=== PATIENT | male | born 1985 | race Caucasian/White ===

== ENCOUNTER 2025-08-13 09:35 | Outpatient (OUT) | payer OTHER, SELFPAY ==
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
--- OUTSIDE RECORDS SUMMARY | 2025-08-07 08:00 | XMS_ITS ---
Author Organization The [facility] [place] in [place] Address [address] [place] [address] Care Team Providers Care Oil Field Rig Builder Name Role Phone None, Unknown or Primary Care Provider Unavailab giovana Espinoza Erika Unavailable [phone] Allergies No Known Allergies REASON FOR VISIT Annual wellness- has not been seen for a while Medications Medication SIG (Take, Route, Frequency, Duration) Notes Start Date End Date Status Progesterone 100 MG 1 capsule Orally bedtime 5ActiveSpironolactone 50 MG1 tablet Orally twice a day5Active Estradiol 2 MG2 tablets Orally in AM and 1 at HS5Active Social History Tobacco Use: Social History Observation Description Date Details (start date - stop date) Never Smoker NA - NA Tobacco Control (Standard) Question Answer Notes Tobacco use: Nonsmoker AUDIT-C (Standard) Question Answer Notes Did you have a drink containing alcohol in the p ast year? Yes How often did you have a drink containing alcohol in the past year?Monthly or less (1 point)How many drinks did you have on a typical day when you were drinking in the past year?1 or 2 drinks (0 point)How often did you have six or more drinks on one occasion in the past year?Less than monthly (1 point)Points2 InterpretationNegative Problems Problem Type SNOMED Code ICD Code Onset Dates Problem Status W/U Status Risk Notes Problem Gender dysphoria (06250888) Gender dyspho francy (F64.9) ActiveconfirmedProblemGastroesophageal reflux disease (929720540)GERD (gastroesophageal reflux disease) (K21.9)Activeconfirmed Vital Signs Blood pressure systolic 126 mm Hg 08/07/20 25 Blood pressure diastolic 98 mm Hg 025 Height 72 in 08/07/2025 Weight 202.0 lbs 08/07/2025 BMI 27.39 kg/m2 08/07/2025 Encounters Encounter Location Date Provider Diagnosis [facility] [address] [place] [place] [address] 08/07/2025 Erika Espinoza Gender dysphoria F64.9 Assessments Encounter Date Diagnosis (ICD Code) Assessment Notes Treatment Notes Treatment Clinical Notes Section Notes 08/07/2025 Gender dysphoria (ICD-10 - F64.9 ) follows with specialist [facility] clinic scheduled for orchiectomy vaginoplasty? Plan Of Treatment Treatment Notes Assessment Notes Gender dysphoria follows with specialist [facility] clinic scheduled for orchiectomy vaginoplasty? Next Appt Details Follow Up: prn,1 Year, Reaso n: Progress Notes * Bia VASQUEZ LDOB:[birth year] (40 yo M)Acc No.[id number]:08/07/2025 Progress Note Patient: Bia RICHARDSON :?Erika Espinoza ([facility]), CNPDOB:1985 ???Age:40 Y???Sex:Male(T)Date:08/07/2025Phone:[phone]:[address] [facility] [id number]:Unknown or NoneCheck In:01:00 PM ESTCheck Out: 01:36 PM EST Subjective: * Chief Complaints: * 1 . Annual wellness- has not been seen for a while. * HPI: ???Depression Screening:?PHQ-2 (2015 Edition)?Total Score?2 ?Little interest or pleasure in doing things? Several days ?Feeling down, depressed, or hopeless??Several days ???Depression Screening:?PHQ-9?Little interest or pleasure in doing things Several days ?Feeling down, depressed, or hopeless?Several days ?Trouble falling or staying asleep, or sleeping too much?Several days ?Feeling tired or having little energy?Not at all ?Poor appetite or overeating?Not at all ?Feeling bad about yourself or that you are a failure, or have let yourself or your family down?Several days ?Trouble concentrating on things, such as reading the newspaper or watching television?Not at all ?Moving or speaking so slowly that other people could have noticed; or the opposite, being so fidgety or restless that you have been moving arounda lot more than usual?Not at all ?Thoughts that you would be better off orof hurting yourself in some way?Not at all ?Total Score?4 ?Interpretation?Minimal Depression ???General:?[facility], [facility] for specialist sx scheduled gender dysphoria psych and therapy all through [facility] not working right now [employer] sometimes GERD at night walking with Dog, some at home work outs have changed diet some has cut out soda contact [facility] for labs little over year been on estrogen , mammogram checks? no acute concerns. * ROS: ???General/Constitutional:?Anxiety?some.?Depression?some.?Fever?denies.?Headache?denies.?Weight loss?denies.?Ophthalmologic:?Discharge?denies.?Eye Pain?denies.?Itching and redness?denies.?ENT:?Nasal discharge?denies.?Nasal congestion?denies. Sore throat?denies.?Cardiovascular:?Chest tightness/ heavy pressure?denies.?Rapid heart rate?denies.?Swelling of extremities?denies.?Chest pain?denies.?Respiratory:?Productive cough?denies.?Chest pain?denies.?Cough?denies.?Shortness of breath?denies.?Wheezing?denies.?Gastrointestinal:?Abdominal pain?denies.?Constipation?denies.?Decreased appetite?denies.?Diarrhea?denies.?Nausea?denies.?Vomiting denies.?Genitourinary:?Urinary incontinence?denies.?Painful urination?denies.?Musculoskeletal:?Back pain?denies.?Neck pain?denies.?Muscle aches?denies.?Skin:?Rash?denies.?Skin lesion(s)?denies.? * Active Problem List K21.9 GERD (gastroesophage al reflux disease) Modified On:08/07/2025W/U Status:bixmjpsojE86.89Dentalgia Modified On:02/04/2024W/U Status:hpnyfthnxK65.9Gender dysphoria Modified On:08/10/2025W/U Status:confirmed * Medical History: G ERD (gastroesophageal reflux disease). * Surgical History: I nguinal Hernia- Left and Right . * Family History: F ather: . M other: alive. B narendra(s): alive. S ister(s): alive. P aternal Grandfather: . P aternal Grandmother: alive. M aternal Grandfather: .?Maternal Grandmother: alive. * Social History: ???Tobacco Use:?Tobacco Control (Standard)?Tobacco use:?Nonsmoker ???Drug/Alcohol:?AUDIT-C (Standard)?Did you have a drink containing alcohol in the past year??Yes ?How often did you have a drink containing alcohol in the past year?? Monthly or less (1 point) ?How many drinks did you have on a typical daywhen you were drinking in the past year??1 or 2 drinks (0 point) ?How often did you have six or more drinks on one occasion in the past year??Less than monthly (1 point) ?Points?2 ?Interpretation?Negative * Medications: T aking Estradiol 2 MG Tablet 2 tablets Orally in AM and 1 at HS , Taking Progesterone 100 MG Capsule 1 capsule Orally bedtime , Taking Spironolactone 50 MG Tablet 1 tablet Orally twice a day , Medication List reviewed and reconciled with the patient * Allergies: N .K.D.A. Objective: * Vitals: W t:202.0lbs, Ht: 72 in, BP:126/98mm Hg, BMI:27.39Index, Ht-cm: 182.88 cm, Wt-k.63 kg. * Examination: ???General Examinations: ?GENERAL APPEARANCE:?alert and oriented,?in no acute distress.?ENMT:?tympanic membranes normal bilaterally.?EYES:? conjunctiva normal, sclera non-icteric.?NOSE:?normal external appearance.?LUNGS:?clear to auscultation bilaterally.?CARDIO:? regular rate and rhythm, S1, S2 normal.?ABDOMEN:?soft, nontender.?MUSCULOSKELETAL:?Gait and station normal.?SKIN:? warm and dry.? Assessment: * Assessment: 1.?Gender dysphoria - F64.9 (Primary)??? Plan: * Treatment: Notes: follows with specialist [facility] clinic scheduled for orchiectomy vaginoplasty??? * Follow Up: klarissa castro,1 Year * * Electronically signed by Erika Espinoza , BUTTER GRADER, BUSINESS PROCESS COORDINATOR.MIDDLE SCHOOL FRENCH TEACHER.[id number] on 08/10/2025 at 09:55 AM ESTSign off status: CompletedVisit Status:?CHK (Check Out) true * Provider: Klarissa Espinoza (ROSALINDA), MIDDLE SCHOOL FRENCH TEACHER Date: Generated for Printing/Faxing/eTransmitting on:?08/12/2025 03:24 PM EST History and Physical Notes * HPI (History of Present Illness) CategorySub-CategoryDetailNotesCategory NotesDepression ScreeningPHQ-9Little interest or pleasure in doing things: Several daysFeeling down, depressed, or hopeless: Several daysTrouble falling or staying asleep, or sleeping too much: Several daysFeeling tired or having little energy: Not at allPoor appetite or overeating: Not at allFeeling bad about yourself or that you are a failure, or have let yourself or your family down: Several daysTrouble concentrating on things, such as reading the newspaper or watching television: Not at allMoving or speaking so slowly that other people could have noticed; or the opposite, being so fidgety or restless that you have been moving around a lot more than usual: Not at allThoughts that you would be better off or of hurting yourself in some way: Not at allTotal Score: 4Interpretation: Minimal Depression General [facility], [facility] for specialist sx scheduled gender dysphoria psych and therapy all through [facility] not working right now [employer] sometimes GERD at night walking with Dog, some at home work outs have changed diet some has cut out soda contact [facility] for labs little over year been on estrogen , mammogram checks? no acute concerns Depression ScreeningPHQ-2 (2015 Edition)Total Score: 2Little interest or pleasure in doing things?: Several daysFeeling down, depressed, or hopeless?: Several days Examination CategorySub-CategoryDetailNotesCategory NotesGeneral ExaminationsGENERAL APPEARANCE:alert and oriented, in no acute distressEYES:conjunctiva normal, sclera non-ictericNOSE:normal external appearanceTHROAT:CARDIO:regular rate and rhythm, S1, S2 normalLUNGS:clear to auscultation bilaterallyABDOMEN:soft, nontenderSKIN:warm and dryBACK:MUSCULOSKELETAL:Gait and station normalLYMPH NODES:ENMT:tympanic membranes normal bilaterally
--- OUTSIDE RECORDS SUMMARY | 2025-08-10 05:19 | XMS_ITS ---
Author Organization The [facility] in [place] Address [address] [place] [address] Care Team Providers Care Printing Machinist Name Role Phone None, Unknown or Primary Care Provider Unavailab Erika Nichols [phone] Encounters Encounter Location Date Provider Diagnosis [address] [address] 08/10/2025 Erika Espinoza Wellness examination Z00.00 Assessments Encounter Date Diagnosis (ICD Code) Assessment Notes Treatment Notes Treatment Clinical Notes Section Notes 08/10/2025 Wellness examination (ICD-10 - Z 00.00) Plan Of Treatment Pending Test Test Name Order Date HEMOGLOBIN A1C (GLYCO) 08/10/2025 LIPID PANEL (CHOL/TRIG/HDL/LDL) 08/10/20 25 Progress Notes * Bia VASQUEZ LDOB:[birth year] (40 yo M)Acc No.[id number]:08/10/2025 Patient:?Bia VASQUEZ :1985???Age:40 Y???Sex:MalePhone:[phone] Address:[address] [place] [address] [place] [address] Subjective: * Chief Complaints: * * Medical History: * Surgical History: * Hospitalization/Major Diagno stic Procedure: * Medications: Objective: * Vitals: * Physical Examination: ??? Assessment: * Assessment: 1.?Wellness examination - Z00.00 (Primary)??? Plan: * Treatment: ?LAB: HEMOGLOBIN A1C (GLYCO) ?LAB: LIPID PANEL (CHOL/TRIG/HDL/LDL) * Procedure Codes: * true * Date:?Generated for Printing/Faxing/eTransmitting on:?08/12/2025 03:24 PM EST
--- OUTSIDE RECORDS SUMMARY | 2025-08-11 14:45 | XMS_ITS | Encounter Summary ---
Author Organization [facility] Address [facility] [place] [address] Care Team Providers Care Cyber Security Architect Name Role Phone Erika Espinoza BOB Primary Care Provider + Source Comments In the event this information is protected by the Federal Confidentiality of Alcohol and Drug AbusePatient Records regulations: The Federal rules restrict any use of the information to criminally investigate or prosecute any alcohol or drug abuse patient.[facility] Reason for Visit * ReasonCommentsPre-Op Exam Encounter Details DateTypeDepartmentCare Team (Latest Contact Info)Txaaalhvswv78/04/2025 2:45 PM ESTOffice Visit Urology [address] [address] Tonny Daniels MD [address] [place] [address] Gender dysphoria (Primary Dx); Preop examination Social History Tobacco UseTypesPacks/DayYears UsedDateSmoking Tobacco: NeverPassive Smoke Exposure: NeverSmokeless Tobacco: Never Tobacco Cessation:Counseling Given: Not Answered Alcohol UseStandard Drinks/WeekCommentsNot Currently0 (1 standard drink = 0.6 oz pure alcohol)[facility] UtilitiesAnswerDate RecordedIn the past 12 months has the electric, gas, oil, or water company threatened to shut off services in your home?No05/10/2025Social Connection and Isolation PanelAnswerDate RecordedIn a typical week, how many times do you talk on the phone with family, friends, or neighbors?Once a week05/10/2025How often do you get together with friends or relatives?Twice a week05/10/2025How often do you attend jain or yarsanism services?Never05/10/2025Do you belong to any clubs or organizations such as jain groups, unions, fraternal or athletic groups, or school groups?Yes 05/10/2025How often do you attend meetings of the clubs or organizations you belong to?1 to 4 times per year05/10/2025re you , , , , never , or living with a partner?Dzfzfkn3605/10/2025UDIT-C AnswerDate RecordedQ1: How often do you have a drink containing alcohol?Monthly or less05/10/2025Q2: How many drinks containing alcohol do you have on a typical day when you are drinking?1 or Q3: How often do you have six or more drinks on one occasion?Never05/10/2025Overall Financial Resource Strain (CARDIA) AnswerDate RecordedHow hard is it for you to pay for the very basics like food, housing, medical care, and heating?Not hard at all05/10/2025PHQ-2AnswerDate RecordedPHQ-2 fqlon115[facility] - Occupational Stress QuestionnaireAnswerDate RecordedDo you feel stress - tense, restless, nervous, or anxious, or unable to sleep at night because yourmind is troubled all the time - these days?Only a oshegr9505/10/2025Exercise Vital Sign AnswerDate RecordedOn average, how many days per week do you engage in moderate to strenuous exercise (like a brisk walk)?5 days05/10/2025On average, how many minutes do you engage in exercise at this level?20 min05/10/2025Hunger Vital SignAnswerDate RecordedWithin the past 12 months, you worried that your food would run out before you got the money to buymore.Never true05/10/2025Within the past 12 months, the food you bought just didn't last and you didn't have money to get more.Never true05/10/2025PRAPARE - TransportationAnswerDate RecordedIn the past 12 months, has lack of transportation kept you from medical appointments or from getting medications?No05/10/2025In the past 12 months, has lack of transportation kept you from meetings, work, or from getting things needed for daily living?No05/10/2025Housing Stability Vital SignAnswerDate RecordedIn the last 12 months, was there a time when you were not able to pay the mortgage or rent on time?No04/17/2024In the last 12 months, how many places have you lived?In the last 12 months, was there a time when you did not have a steady place to sleep or slept in ashelter (including now)?No 04/17/2024rea Deprivation IndexAnswerDate RecordedNational Score (1-100), lower number is lower vsdw423303/12/2024State Score (1-10), lower number is lower risk8 03/12/2024ata from: https://www.neighborhoodatlas.[facility].edu/. Last address used for [address] [facility]03/12/2024Sex and Gender Information ValueDate RecordedSex Assigned at EtgfpLyxq06/14/2024 9:46 PM EDTLegal SexMale 10/24/2023 3:37 PM ESTGender IdentityTransgender Qtykod1603/12/2024 1:27 PM EDT Sexual OrientationNot on filedocumented as of this encounter Last Filed Vital Signs Vital SignReadingTime TakenCommentsBlood Smczzaku464/9411 2:45 PM EST Spbmh2766/04/2025 2:45 PM ESTTemperature--Respiratory Rate--Oxygen Saturation-- Inhaled Oxygen Concentration--Vhjkvr56.7 kg (204 lb 5.9 oz)08/11/2025 2:45 PM ESTHeight--Body Mass Index27.7208 2:18 PM EDTdocumented in this encounter Progress Notes * Tonny Daniels MD - 08/11/2025 2:52 PM EST Images from the original note were not included. [facility] GENDER AFFIRMING PREOP H&P CLINIC NOTE SERVICE DATE: 08/11/2025 SERVICE TIME: 2:52 PM NAME: Liz Vasquez she/her/hers Date of Procedure: 08/24/2025 Procedure/Surgery: Gender affirming bilateral orchiectomy Diagnosis: Gender dysphoria Primary Surgeon: Tonny Daniels MD PHYSICAL EXAM: BP 135/94 Pulse 90 Wt 92.7 kg (204 lb 5.9 oz) BMI 27.72 kg/m?? General appearance: alert, in no acute distress Skin: skin color, texture, turgor normal, no suspicious rashes or lesions Lungs: clear to auscultation, no wheezing or rhonchi Heart: RRR without murmur, gallop, or rubs. Abdomen: Normal abdominal exam, Abdomen soft, non-tender. Allergies Reviewed: Yes Medications Reviewed: Yes Does the patient have any artificial joints (last 2 years), metal parts, pacemakers or cardiac/ureteral stents in place?: No Is the patient routinely taking anticoagulants?: No. Can the patient have an IV put in either arm?: Yes IMPACT/Medical Clearance: Cleared per IMPACT - To be seen All testing on cureform has been scheduled: Yes Consent Signed: Yes. DOS Orders Placed and Signed: Yes. Plan: 1. Gender dysphoria - ICD9: 302.6, ICD10: F64.9 (primary diagnosis) 2. Preop examination - ICD9: V72.84, ICD10: Z01.818 PATIENT INSTRUCTIONS FOR SURGERY 1.) DO NOT HAVE ANYTHING TO EAT AFTER MIDNIGHT THE DAY BEFORE SURGERY except for certain morning medications as instructed by the doctor. Candy, mints, gum, and smoking are NOT permitted. You may drink clear liquids (Sprite, water, gerardo rehan) up to two hours before your arrival time on the day of surgery. 2.) Medications to be taken on the morning of surgery with a few sips of water: estradiol 3.) Please bring all your prescribed inhalers (if you have any you normally take) to the hospital. 4.) Arrival time: Call for arrival. 5.) Miralax Prep given: No Recommendations: This patient is optimally prepared for surgery. - Gender surgery preop presentation given and sent via MyChart to patient - Hilda () willl be transportation for patient after surgery ([phone]) - ok also to talk to Mother in Law (Kiana) if needed - Continue estrogen tabs - Where should meds be sent postop? [facility] [place] JOSE F Sarabia MD documented in this encounter Plan of Treatment DateTypeDepartmentCare Team (Latest Contact Info)Iatowhbktht40/06/2025 10:40 AM [facility] Internal Medicine [place] [id number] [place] [phone] Burak Lackey PA-C [address] [place] [address] gaht f/u110/24/2024 9:15 AM ESTHospital Encounter [facility] Surgery [address] [place] [address] Tonny Daniels MD [address] [place] [address] Gender dysphoria [F64.9]08/24/2025 9:15 AM EST - 08/24/2025 10:50 AM ESTSurgery [facility] [address] [place] [address] Tonny Daniels MD [address] [place] [address] BILATERAL WNCOBOEIJGL41/05/2025 10:00 AM ESTOffice Visit Urology [address] [address] Zoila Tarango PA-C [address] [place] [address] Post op10/07/2025 9:30 AM [facility] [address] [address] Tonny Daniels MD [address] [place] [address] Post op11/23/2025 1:40 PM ESTOffice Visit Internal Medicine [place] [address] [place] [address] Burak Lackey PA-C [address] [place] [address] ga f/u002/23/2026 9:00 AM EDTDis[facility] [id number] [place] [address] Tonny Luna, CORI.[employer] [address] [place] [address] Follow upNamePriorityAssociated DiagnosesDate/TimeORCHIECTOMY Gender dysphoria 08/24/2025 9:15 AM ESTdocumented as of this encounter Visit Diagnoses Diagnosis Gender dysphoria- Primary Gender identity disorder in children Preop examination Preoperative examination, unspecified Gender dysphoria Gender identity disorder in children documented in this encounter Care Teams Team MemberRelationshipSpecialtyStart DateEnd Date Erika Espinoza, [employer] [address] [place] [address] PCP - GeneralInternal Medicine01/23/24documented as of this encounter
--- OUTSIDE RECORDS SUMMARY | 2025-08-12 11:00 | XMS_ITS | Encounter Summary ---
Author Organization [facility] Address [address] [place] [address] Care Team Providers Care Equip Tech Name Role Phone Erika Espinoza BOB Primary Care Provider + Source Comments In the event this information is protected by the Federal Confidentiality of Alcohol and Drug AbusePatient Records regulations: The Federal rules restrict any use of the information to criminally investigate or prosecute any alcohol or drug abuse patient.[facility] Reason for Visit * ReasonCommentsPre-Op Visit Encounter Details DateTypeDepartmentCare Team (Latest Contact Info)Jwledbsdovn33/05/2025 11:00 AM ESTPAT Pre Anesthesia [address] [place] [id number] Pre-op evaluation (Primary Dx); Gender dysphoria in adult; Gastroesophageal reflux disease without esophagitis Social History Tobacco UseTypesPacks/DayYears UsedDateSmoking Tobacco: NeverPassive Smoke Exposure: NeverSmokeless Tobacco: NeverAlcohol UseStandard Drinks/WeekComments Not Currently0 (1 standard drink = 0.6 oz pure alcohol)[facility] UtilitiesAnswerDate RecordedIn the past 12 months has the electric, gas, oil, or water company threatened to shut off services in your home?No05/10/2025Social Connection and Isolation PanelAnswerDate RecordedIn a typical week, how many times do you talk on the phone with family, friends, or neighbors?Once a week05/10/2025How often do you get together with friends or relatives?Twice a week05/10/2025How often do you attend jew or amish services?Never05/10/2025Do you belong to any clubs or organizations such as jew groups, unions, fraPepperdata or athletic ramón ups, or school groups?Yes05/10/2025How [...] and heating?Not hard at all 05/10/2025PHQ-2AnswerDate RecordedPHQ-2 flasb941[facility] [place] of Occup[facility] - Occupational Stress QuestionnaireAnswerDate RecordedDo you feel stress - tense, restless, nervous, or anxious, or unable to sleep at night because yourmind is troubled all the time - these days?Only a ktdolj6605/10/2025 Exercise Vital SignAnswerDate RecordedOn average, how many [...] RecordedNational Score (1-100), lower number is lower tuum536603/12/2024State Score (1-10), lower number is lower gcod66103/12/2024ata from: https://www.neighborhoodatlas.[facility].edu/. Last address used for e[address] [facility]03/12/2024Sex and Gender InformationValueDate RecordedSex Assigned at JdpbaCdgt59/14/2024 9:46 PM EDTLegal QnfFpsu5410/24/2023 3:37 PM ESTGender IdentityTransgender Bklbrc1203/12/2024 1:27 PM EDTSexual OrientationNot on filedocumented as of this encounter Last Filed Vital Signs Vital SignReadingTime TakenCommentsBlood Pressure--Pulse--Temperature-- Respiratory Rate--Oxygen Saturation--Inhaled Oxygen Concentration--Uksehl06.2 kg (214 lb 4.6 oz)08/12/2025 10:51 AM NEZUmguiw036.9 cm (6')08/12/2025 10:51 AM EST Body Mass Index29.0608/12/2025 10:51 AM ESTdocumented in this encounter Patient Instructions * Patient Instructions* Enedelia Green PA - 08/12/2025 10:57 AM EST Images from the original note were not included. [facility] PATIENT PREOPERATIVE INSTRUCTIONS Tonny Daniels MD has scheduled you for your procedure at this surgery center: [facility]: [phone] --[address] [place] [address]. Please enter through the entrance closest to [facility]. Please read below carefully for your personalized instructions. Dietary Restrictions: - No solid food after midnight. - You may have 12 ounces of clear liquids (water, clear juices such as apple juice or gatorade, carbonated beverages, clear tea, black coffee, jello) until 2 hours before scheduled arrival at facility. Medications: Unless instructed differently below, stay on all of your medications until your surgery. If you start any new medications after today's visit, please contact your surgeon. Pre-Surgery Med Instructions Medication Instructions calcium carbonate (TUMS) 500 mg chew Continue as needed estradiol (ESTRACE) 2 mg tablet Continue. spironolactone (ALDACTONE) 50 mg tablet Do not take the day of surgery progesterone micronized (PROMETRIUM) 100 mg capsule Continue. If you start any new medications after today's visit, please contact the surgeon's office. Blood Thinning Medications: - Stop NSAIDS (Ibuprofen, Advil, Aleve, Motrin, Celebrex, Mobic, etc.) 7 days before surgery, as directed by your surgeon. - Stop Aspirin 7 days before surgery, as directed by your surgeon. - Stop ALL herbal and dietary supplements 7 days before surgery. - You may take Tylenol (Acetaminophen) or any of your pain medications that do not contain aspirin or NSAIDS as needed. Important Reminders: - If you use CPAP/BIPAP, bring the machine with you to the surgery center. - Candy, mints, and tobacco products are NOT permitted the morning of surgery. - Hearing aids, dentures and glasses may be worn the morning of surgery. - NO jewelry, body piercings, makeup, hairpins or contacts are to be worn the day of surgery. If you develop symptoms such as a fever, cold, or flu, or have other changes to your health within TWO DAYS of scheduled surgery or the morning of surgery, please contact the surgery center above. Personal Belongings: -Please have photo ID and insurance cards. -If you do not have a copy of advance directives on file with us, please bring a copy with you on the day of surgery. - Leave ALL valuables and money at home or with family members. - Please bring high-quality footwear, such as sneakers, to the hospital for ambulating post-surgery. For Outpatient Procedures: - YOU MUST HAVE A RESPONSIBLE BUSINESS LIBRARIAN TAKE YOU HOME. A COLOR DRUM WORKER OR PROGRAM MANAGER RN CANNOT BE MADE A RESPONSIBLE BUSINESS LIBRARIAN. - We recommend that a responsible person stays with you overnight to take care of you. - You cannot stay in a hotel alone after outpatient surgery. You will not be permitted to have yoursurgery, if you do not have someone to take care of you. Arrival Time for Surgery: - The Surgery Center or hospital where you are having surgery will call the afternoon before surgery (or Sunday for Sunday surgery) with a scheduled arrival time. - If you have not heard by 4 pm, please contact the surgery center above. Please be aware that emergency situations arise, which may delay or change your surgical time. If this happens, we will notify you as soon as possible and regret any inconvenience. If you already have an Advance Directive, please fax a copy to [phone] or email to for it to be added to your chart. If you do not have an Advance Directive, you can find the appropriate form and more information at [email or web address]. We recommend that youcomplete the Advance Directive form found on the website and bring it with you the day of your surgery. It can be witnessed and scanned into your chart that day. OLAYINKA Wilkins documented in this encounter H&P Notes * Enedelia Green PA - 08/12/2025 11:00 AM EST Images from the original note were not included. [facility] HISTORY AND PHYSICAL EXAMINATION SERVICE DATE: 08/12/2025 SERVICE TIME: 10:59 AM PRIMARY CARE PHYSICIAN: Erika S Alexis, DECKHAND SPONGE BOAT, [employer]KHAND SPONGE [employer]AT Assessment Patient has the following medical conditions which may affect jesika-operative course: Gender dysphoria in adult Assessment: b/l orchiectomy scheduled. Takes spironolactone, estrace and prometrium. GERD (gastroesophageal reflux disease) Assessment: Takes Tums about twice a week for symptoms at night. ANESTHESIA FINDINGS: Intubation History: No history of difficult intubation Significant Anesthesia Considerations: none Airway History: No history of difficult airway Anna Activity Status Index: METS: Walk indoors, such as around the house (1.75 METs) Do light work around the house, such as dusting or washing dishes (2.70 METs) Take care of self; that is eating, dressing, bathing, using the toilet (2.75 METs) Walk a block or two on level ground (2.75 METs) Do moderate work around the house, such as vacuuming, sweeping floors, or carrying in groceries (3.50 METs) Do yardwork, such as raking leaves, weeding, or pushing a power mower (4.50 METs) Have sexual relations (5.25 METs) Climb a flight of stairs or walk up a hill (5.50 METs) DASI Score: 28.7 Patient denies any chest pain or undue shortness of breath with the above physical activity. STOP-Bang Score: Male patient Denies snoring loudly Denies feeling tired, fatigued, or sleepy during the daytime Has not been observed to stop breathing or choking/gasping during sleep Denies having high blood pressure BMI less than or equal to 35 kg/m^2 Patient 50 years old or younger Does not have a large neck STOP-Bang Score: 1 I - PHYSICAL EVALUATION AIRWAY Patient intubated: No. Tracheostomy tube not present Mallampati: I. TM distance: >3 FB. Neck ROM: full ROM without neurological symptoms. Mouth opening: >3 FB. Short neck: no. Thick neck: no Payton present: no Lip Bite Test: II Microretrognathia/Micronagthia/Recessed Chin: No DENTAL Dental findings: missing tooth/teeth. Dentures, upper: partial. II - ANESTHESIA PLAN Anesthetic plan additional comments: *PACC/TCI - anesthesia choice. Informed Consent Prepared for Surgery: optimally prepared for surgery. CBC & CMP reviewed from 08/06/25. EKG not indicated per PACC protocol. CONSULTS: Patient does not require consults for optimization at this time Planned Anesthetic: anesthesia choice The Following Tests/Procedures Have Been Initiated: Orders Placed This Encounter calcium carbonate (TUMS) 500 mg chew Sig: Take by mouth. This is a virtual visit using [employer] video visit. It required patient-provider interaction for themedical decision making as documented below. REASON FOR VISIT: Bia Vasquez is a 40 year old adult who is scheduled for Procedure(s): BILATERAL ORCHIECTOMY (Bilateral) at the request of Dr. Tonny Daniels for consultation. My finalrecommendation will be communicated back to the requesting physician by way of shared medical record or letter. Subjective The patient has the following: COVID-19 Immunization Status Current Care Gaps Covid-19 Vaccine ( season) Overdue since 06/08/2025 07/15/2021 Imm Admin: COVID-19 original vaccine, age 12+ yr, monovalent (PFIZER- BIONTECH - PURPLE TOP) 06/24/2021 Imm Admin: COVID-19 original vaccine, age 12+ yr, monovalent (PFIZER- BIONTECH - PURPLE TOP) CHIEF COMPLAINT: Pre-anesthesia consultation HPI: 40 year old year old adult presents today for a pre-anesthesia consultation for the above procedure. Patient is scheduled for a bilateral orchiectomy due to gender dysphoria. Denies fever, chills, wounds, or rashes. This is a virtual visit. The visit was conducted using [employer] video visit. It required patient-provider interaction for the medical decision making as documented below. I have communicated my name and active licensure. The patient's identity and physical location wereverified at the time of this visit. Either the patient or their legal sales representative electric service has been informed of the risks and benefits of and alternatives to treatment through a remote evaluation and consents to proceed with the evaluation remotely. REVIEW OF SYSTEMS: General: No weight loss, malaise or fevers. Neurological: No history of TIA's, stroke, REFRIGERATION ENGINE OPERATOR tumor, impaired sensorium, hemiplegia, paraplegia orquadraplegia. No neurological symptoms or problems. Respiratory: No history of current cough or dyspnea, or pneumonia in the past 6 weeks. No history of respiratory/pulmonary symptoms or problems. Cardiovascular: No history of HTN requiring medication, no history of angina, CHF, [place], cardiac surgery or stents. Denies rest pain, gangrene or revascularization/amputation for PVD. No history of cardiovascular symptoms or problems. GI: Positive for: GERD : See HPI. Endocrine: No history of diabetes. Has not taken steroids within the past 30 days. No history of endocrinological symptoms or problems. Hematology: No history of bleeding or clotting disorder. Patient is not taking anti-coagulation or platelet medications. No history of hematological symptoms or problems. Oncology: No history of CA metastasis, chemo within 30 days, or radiotherapy within 90 days. No history of oncological symptoms or problems. Psych: See HPI. Musculoskeletal: Negative for joint pain or swelling, back pain or muscle pain. Skin: Negative for lesions, rash and itching. Implanted Devices: No implanted devices. History reviewed. No pertinent past medical history. PAST SURGICAL HISTORY Procedure Laterality Date REPAIR ING HERNIA,5+Y/O,REDUCIBL Bilateral right side, then left side History reviewed. No pertinent family history. SOCIAL HISTORY[1] Prior to Admission medications as of 08/12/25 1053 Medication Sig Last Dose Taking calcium carbonate (TUMS) 500 mg chew Take by mouth. Yes estradiol (ESTRACE) 2 mg tablet Take 1 tablet by mouth three times a day. Yes spironolactone (ALDACTONE) 50 mg tablet Take 1 tablet by mouth two times a day. Yes progesterone micronized (PROMETRIUM) 100 mg capsule TAKE 1 CAPSULE BY MOUTH EVERY DAY Yes No medication comments found. ALLERGIES No Known Allergies Objective PHYSICAL EXAM: (if completed, exam performed via video enabled technology) General: alert and oriented. Skin: No apparent rashes.. HEENT: EOM intact. Cardiovascular: Self palpated carotid pulse, regular when counted aloud by patient. Respiratory: Adequate non-labored breathing. Equal chest rise and fall bilaterally.. Abdomen: Extremities: No obvious deformities.. Neurological: No obvious deficits. Normal cognition. Grossly normal motor skills.. PAIN ASSESSMENT: VITALS: Ht 6' 0 (1.83m) Wt 214 lb 4.6 oz (97.2kg) BMI 29.06 kg/(m^2). Diagnostic tests reviewed for today's visit: Lab Value Units Date High Low HB 13.5 g/dL 08/06/2025 17.0 13.0 HCT 38.7 % 08/06/2025 51.0 39.0 WBC 6.43 k/uL 08/06/2025 11.00 3.70 PLT 236 k/uL 08/06/2025 400 150 NA 139 mmol/L 08/06/2025 144 136 K 3.9 mmol/L 08/06/2025 5.1 3.7 GLUC 103 mg/dL 08/06/2025 99 74 BUN 9 mg/dL 08/06/2025 24 9 CREAT 0.74 mg/dL 08/06/2025 1.22 0.73 PTSEC No results within date range. INR No results within date range. APTT No results within date range. ALT 8 U/L 08/06/2025 54 10 AST 11 U/L 08/06/2025 40 14 TBILI 0.5 mg/dL 08/06/2025 1.3 0.2 TSH No results within date range. Lab Value Units Date High Low HCGQT No results within date range. UHCG No results within date range. HCG, BODY* No results within date range. Lab Value Units Date High Low ABORHD No results within date range. ABSCREEN No results within date range. No results found for: HBA1C No results found for this or any previous visit (from the past 8760 hours). No results found for this or any previous visit (from the past 75540 hours). Instructions Given to Patient: Instructions located in the after visit summary. Patient given verbal and written preop instructions and voices comprehension and compliance. SIGNATURE: OLAYINKA Wilkins PATIENT NAME: Bia Vasquez DATE: August 12, 2025 TIME: 8:43 AM PAGER/CONTACT #: I spent a total of 9 minutes on the date of the service which included preparing to see the patient, jqog-[id number] patient care, completing clinical documentation, obtaining and/or reviewing separately obtained history, and performing a medically appropriate examination. [1] Social History Tobacco Use Smoking status: Never Passive exposure: Never Smokeless tobacco: Never Substance Use Topics Alcohol use: Not Currently Drug use: Never documented in this encounter Plan of Treatment DateTypeDepartmentCare Team (Latest Contact Info)Qgvufxbkbfw74/06/2025 10:40 AM ESTDistance Health Internal Medicine [address] [phone] Burak Lackey PA-C [id number] [place] [address] mnmarleni /u110/24/2024 9:15 AM ESTHospital Encounter [facility] Surgery [address] [place] [address] [place] [address] [place] [address] Gender dysphoria [F64.9]08/24/2025 9:15 AM EST - 08/24/2025 10:50 AM ESTSurgery [facility] [address] [place] [address] Tonny Daniels MD [address] [place] [address] BILATERAL WPBJSLSTZSD55/05/2025 10:00 AM ESTOffice Visit Urology [address] [address] Zoila Tarango PA-C [address] [place] [address] Post op10/07/2025 9:30 AM [facility] Urology [address] [address] [place] [address] [place] [address] Post op11/23/2025 1:40 PM ESTOffice Visit Internal Medicine [address] [phone] Burak Lackey PA-C [address] [place] [address] ga f/u002/23/2026 9:00 AM EDTDistance [facility] [address] [place] [address] Tonny Luna APRN.DECKHAND SPONGE BOAT [address] [place] [address] Follow upNamePriorityAssociated DiagnosesDate/TimeORCHIECTOMY Gender dysphoria 08/24/2025 9:15 AM ESTdocumented as of this encounter Visit Diagnoses Diagnosis Pre-op evaluation- Primary Preoperative examination, unspecified Gender dysphoria in adult Gastroesophageal reflux disease without esophagitis Esophageal reflux Gender dysphoria Gender identity disorder in children * Assessment & Plan Note - Enedelia Green PA - 08/12/2025 10:54 AM EST Associated Problem(s): GERD (gastroesophageal reflux disease) Assessment: Takes Tums about twice a week for symptoms at night. * Assessment & Plan Note - Enedelia Green PA - 08/12/2025 10:51 AM EST Associated Problem(s): Gender dysphoria in adult Assessment: b/l orchiectomy scheduled. Takes spironolactone, estrace and prometrium. documented in this encounter Care Teams Team MemberRelationshipSpecialtyStart DateEnd Date Erika Espinoza CNP [address] [place] [address] PCP - GeneralInternal Medicine01/23/24documented as of this encounter
--- OUTSIDE RECORDS SUMMARY | 2025-08-12 15:24 | XMS_ITS | Patient Health Record ---
Author Organization [facility] [place] Address [address] [place] [address] Care Team Providers Care Ultrasound Technologist Sonographer Name Role Phone None, Unknown or Primary Care Provider Unavailab giovana Erika Espinoza Unavailable [phone] Allergies No Known Allergies Reason For Referral No Information Medications Medication SIG (Take, Route, Frequency, Duration) [...] Problem Status W/U Status Risk Notes Problem Gastroesophageal ref lux disease (221748331) GERD (gastroesophageal reflux disease) (K21.9) ActiveconfirmedProblemDentalgia (83023242)Dentalgia (K08.89)Activeconfirmed ProblemGender dysphoria (21305585)Gender dysphoria (F64.9)Activeconfirmed Vital Signs Blood pressure diastolic 98 mm Hg 08/07/2025 Yhdwex75 in08/07/2025lood pressure mjfhsqod586 mm Hg08/07/20257208Wtzopk777.0 lbs 08/07/2025BMI27.39 kg/m208/07/2025 Encounters Encounter Location Date Provider Diagnosis [facility] [address] [place] [address] 08/07/2025 Erika Espinoza Gender dysphoria F64.9 [facility] [address] [place] [address] 08/07/2025 Erika Espinoza [facility] [place] [address] [facility].00 Assessments Encounter Date Diagnosis (ICD Code) Assessment Notes Treatment Notes Treatment Clinical Notes Section Notes 08/07/2025 Gender dysphoria (ICD-10 - F64.9 ) follows with specialist [facility] scheduled for orchiectomy vaginoplasty? 08/10/2025Wellness examination (ICD-10 - Z00.00) Plan Of Treatment Pending Test Test Name Order Date HEMOGLOBIN A1C (GLYCO) 08/10/2025 LIPID PANEL (CHOL/TRIG/HDL/LDL) 08/10/20 25 Insurance Providers Payer Name Payer Address Payer Phone Subscriber Number Group Number Insured Name Patient Relationship to Insured Coverage Start Date Coverage End Date [employer] [address] [address] [place] [phone] [id number] Bia Flanagan Self - patient is the insured Medical (General) History Medical History History ICD Code GERD (gastroesophageal reflux disease) K 21.9 Surgical History Surgery Date(Month/Year) Inguinal Hernia- Left and Right
--- OUTSIDE RECORDS SUMMARY | 2025-08-13 09:39 | XMS_ITS | Encounter Summary ---
Author Organization [facility] Address [address] [place] [address] Care Team Providers Care Flight Engineer Inspector Name Role Phone Erika Espinoza BOB Primary Care Provider + Source Comments In the event this information is protected by the Federal Confidentiality of Alcohol and Drug AbusePatient Records regulations: The Federal rules restrict any use of the information to criminally investigate or prosecute any alcohol or drug abuse patient.[facility] Encounter Details DateTypeDepartmentCare Team (Latest Contact Info)Bzgdrixilgt42/03/2025Travel Social History Tobacco UseTypesPacks/DayYears UsedDateSmoking Tobacco: NeverPassive Smoke Exposure: NeverSmokeless Tobacco: NeverAlcohol UseStandard Drinks/WeekComments Not Currently0 (1 standard drink = 0.6 oz pure alcohol)[facility] UtilitiesAnswerDate RecordedIn the past 12 months has the [employer], gas, oil, or water [employer] threatened to shut off services in your home?No05/10/2025Social Connection and Isolation PanelAnswerDate RecordedIn a typical week, how many times do you talk on the phone with family, friends, or neighbors?Once a week05/10/2025How often do you get together with friends or relatives?Twice a week05/10/2025How often do you attend jehovah's witness or sabianist services?Never05/10/2025Do you belong to any clubs or organizations such as jehovah's witness groups, unions, fraternal or athletic ramón ups, or school groups?Yes05/10/2025How [...] and heating?Not hard at all 05/10/2025PHQ-2AnswerDate RecordedPHQ-2 xpszm867Finlakeview hospital [place] of Occupational Health - Occupational Stress QuestionnaireAnswerDate RecordedDo you feel stress - tense, restless, nervous, or anxious, or unable to sleep at night because yourmind is troubled all the time - these days?Only a nfmdvp7305/10/2025 Exercise Vital SignAnswerDate RecordedOn average, how many [...] RecordedNational Score (1-100), lower number is lower ywoe477903/12/2024State Score (1-10), lower number is lower rhic53203/12/2024ata from: https://www.neighborhoodatlas.[facility].edu/. Last address used for epyfpctowrz520 [facility]03/12/2024Sex and Gender InformationValueDate RecordedSex Assigned at CwwgyTzwx18/14/2024 9:46 PM EDTLegal SmtFqia4110/24/2023 3:37 PM ESTGender IdentityTransgender Tczkef6003/12/2024 1:27 PM EDTSexual OrientationNot on filedocumented as of this encounter Plan of Treatment DateTypeDepartmentCare Team (Latest Contact Info)Ofltnrlbczl72/06/2025 10:40 AM [facility] Internal Medicine [place] [address] [place] [address] Burak Lackey PA-C [address] [place] [address] qiana f/u110/24/2024 9:15 AM ESTHospital Encounter [facility] Surgery [address] [place] [address] Tonny Daniels MD [address] [place] [address] Gender dysphoria [F64.9]08/24/2025 9:15 AM EST - 08/24/2025 10:50 AM ESTSurgery [facility] Surgery [address] [place] [address] Tonny Daniels MD [address] [place] [address] BILATERAL HTXKKITDKFA72/05/2025 10:00 AM ESTOffice Visit Urology [address] [place] [address] Zoila Tarango PA-C [address] [place] [address] Post op10/07/2025 9:30 AM ESTDistanNYU [facility] [address] [place] [address] Tonny Daniels MD [address] [place] [address] Post op11/23/2025 1:40 PM ESTOffice Visit Internal Medicine [place] [address] [place] [phone] Burak Lackey PA-C [address] [place] [address] gaht f/u002/23/2026 9:00 AM [facility]TLake[facility] Psychiat[facility] [address] [place] [address] Tonny Luna APRN.CUSTOMER ADVISOR SPECIALIST [address] [place] [address] Follow upNamePriorityAssociated DiagnosesDate/TimeORCHIECTOMY Gender dysphoria 08/24/2025 9:15 AM ESTdocumented as of this encounter Visit Diagnoses Not on filedocumented in this encounter Care Teams Team MemberRelationshipSpecialtyStart DateEnd Date Erika Espinoza, CUSTOMER ADVISOR SPECIALIST [address] [place] [address] PCP - GeneralInternal Medicine01/23/24documented as of this encounter
--- OUTSIDE RECORDS SUMMARY | 2025-08-13 09:39 | XMS_ITS | Encounter Summary ---
Author Organization [facility] Address [address] [place] [address] Care Team Providers Care Manufacturing Applications Engineer Name Role Phone Erika Espinoza BOB Primary Care Provider + Source Comments In the event this information is protected by the Federal Confidentiality of Alcohol and Drug AbusePatient Records regulations: The Federal rules restrict any use of the information to criminally investigate or prosecute any alcohol or drug abuse patient.[facility] Reason for Visit * ReasonOnset DateCommentsRefill Amgyipy1407/29/2025 Encounter Details DateTypeDepartmentCare Team (Latest Contact Info)Playnxyyibx02/22/2025Refill Internal Medicine [place] [address] [place] [phone] [place] [address] [place] [address] Refill Request Social History Tobacco UseTypesPacks/DayYears UsedDateSmoking Tobacco: NeverPassive Smoke Exposure: NeverSmokeless Tobacco: NeverAlcohol UseStandard Drinks/WeekComments Not Currently0 (1 standard drink = 0.6 oz pure alcohol)[facility] UtilitiesAnswerDate RecordedIn the past 12 months has the electric, gas, oil, or water company threatened to shut off services in your home?No05/10/2025Social Connection and Isolation PanelAnswerDate RecordedIn a typical week, how many times do you talk on the phone with family, friends, or neighbors?Once a week05/10/2025How often do you get together with friends or relatives?Twice a week05/10/2025How often do you attend nondenominational or yazidism services?Never05/10/2025Do you belong to any clubs or organizations such as nondenominational groups, unions, fraternal or athletic ramón ups, [...] and heating?Not hard at all 05/10/2025PHQ-2AnswerDate RecordedPHQ-2 nvanz605Finamerican fork hospital [place] of Occupational Health - Occupational Stress QuestionnaireAnswerDate RecordedDo you feel stress - tense, restless, nervous, or anxious, or unable to sleep at night because yourmind is troubled all the time - these days?Only a ygdcxr9405/10/2025 Exercise Vital SignAnswerDate RecordedOn average, how many [...] steady place to sleep or slept in [place] (including now)?No04/17/2024rea Deprivation IndexAnswerDate RecordedNational Score (1-100), lower number is lower kqvj659203/12/2024State Score (1-10), lower number is lower dayn2924Data from: https://www.neighborhoodatlas.[facility].edu/. Last address used for nrzsubrcvpu[address] [facility]03/12/2024Sex and Gender InformationValueDate RecordedSex Assigned at HscxdHwor72/14/2024 9:46 PM EDTLegal MqeHrph2710/24/2023 3:37 PM ESTGender IdentityTransgender Kszfau0003/12/2024 1:27 PM EDTSexual OrientationNot on filedocumented as of this encounter Miscellaneous Notes * Telephone Encounter - Salvador Campbell LPN - 07/31/2025 10:48 AM EDT LV 05/13/25 Next appt 08/13/25 Requested Prescriptions Pending Prescriptions Disp Refills estradiol (ESTRACE) 2 mg tablet 270 tablet 0 Sig: Take 1 tablet by mouth three times a day. spironolactone (ALDACTONE) 50 mg tablet 180 tablet 0 Sig: Take 1 tablet by mouth two times a day. documented in this encounter Plan of Treatment DateTypeDepartmentCare Team (Latest Contact Info)Kovswpevzvs86/06/2025 10:40 AM [facility] Internal Medicine [place] [address] [place] [address] Burak Lackey PA-C [address] [place] [address] ga f/u110/24/2024 9:15 AM ESTHospital Encounter [facility] Surgery [address] [place] [address] [place] [address] [place] [address] Gender dysphoria [F64.9]08/24/2025 9:15 AM EST - 08/24/2025 10:50 AM ESTSurgery [facility] Surgery [address] [place] [address] Tonny Daniels MD [address] [place] [address] BILATERAL GLUCFWWHHPZ26/05/2025 10:00 AM ESTOffice Visit Urology [address] [address] Zoila Tarango PA-C [address]348 [place] [address] Post op10/07/2025 9:30 AM [facility] Urology [address] [address] Tonny Daniels MD [address]00 [place] [address] Post op11/23/2025 1:40 PM ESTOffice Visit Internal Medicine [place] [address] [place] [address] Burak Lackey PA-C [address] [place] [address] qiana /u002/23/2026 9:00 AM EDTDisEllis [facility] [address] [place] [address] Tonny Luna APRN.HARNESS WORKER [address] [place] [address] Follow upNamePriorityAssociated DiagnosesDate/TimeORCHIECTOMY Gender dysphoria 08/24/2025 9:15 AM ESTdocumented as of this encounter Visit Diagnoses Diagnosis Gender dysphoria in adult Gender dysphoria Gender identity disorder in children documented in this encounter Care Teams Team MemberRelationshipSpecialtyStart DateEnd Date Erika Espinoza, BOB [address] [place] [address] PCP - GeneralInternal Medicine01/23/24documented as of this encounter
--- OUTSIDE RECORDS SUMMARY | 2025-08-13 09:39 | XMS_ITS | Encounter Summary ---
Author Organization [facility] Address [facility] [place] [address] Care Team Providers Care Process Controller Name Role Phone Erika Espinoza COAL CAGER Primary Care Provider + Source Comments In the event this information is protected by the Federal Confidentiality of Alcohol and Drug AbusePatient Records regulations: The Federal rules restrict any use of the information to criminally investigate or prosecute any alcohol or drug abuse patient.[facility] Encounter Details DateTypeDepartmentCare Team (Latest Contact Info)Jpslkwhxyht61/30/2025Results Follow-Up Internal Medicine [place] [address] [place] [phone] [place] [address] [place] [address] Social History Tobacco UseTypesPacks/DayYears UsedDateSmoking Tobacco: NeverPassive Smoke Exposure: NeverSmokeless Tobacco: NeverAlcohol UseStandard Drinks/WeekComments Not Currently0 (1 standard drink = 0.6 oz pure alcohol)[facility] UtilitiesAnswerDate RecordedIn the past 12 months has the electric, gas, oil, or water company threatened to shut off services in your home?No05/10/2025Social Connection and Isolation PanelAnswerDate RecordedIn a typical week, how many times do you talk on the phone with family, friends, or neighbors?Once a week05/10/2025How often do you get together with friends or relatives?Twice a week05/10/2025How often do you attend sabianist or druze services?Never05/10/2025Do you belong to any clubs or organizations such as sabianist groups, unions, [employer] or athletic ramón ups, or school groups?Yes05/10/2025How [...] and heating?Not hard at all 05/10/2025PHQ-2AnswerDate RecordedPHQ-2 mirto575Finmountain point medical center [place] of Occupational Health - Occupational Stress QuestionnaireAnswerDate RecordedDo you feel stress - tense, restless, nervous, or anxious, or unable to sleep at night because yourmind is troubled all the time - these days?Only a btghej5305/10/2025 Exercise Vital SignAnswerDate RecordedOn average, how many [...] RecordedNational Score (1-100), lower number is lower uvvk830303/12/2024State Score (1-10), lower number is lower eoyb96603/12/2024ata from: https://www.neighborhoodatlas.medicine.[facility].edu/. Last address used for cubivtnvcal5[address] [facility]03/12/2024Sex and Gender InformationValueDate RecordedSex Assigned at TbyxeXdss91/14/2024 9:46 PM EDTLegal MdbRtgy7610/24/2023 3:37 PM ESTGender IdentityTransgender Cjmens9603/12/2024 1:27 PM EDTSexual OrientationNot on filedocumented as of this encounter Plan of Treatment DateTypeDepartmentCare Team (Latest Contact Info)Ubvyjizvtqa18/06/2025 10:40 AM [facility] Internal Medicine [place] [address] [place] [address] Burak Lackey PA-C [address] [place] [address] qiana f/u110/24/2024 9:15 AM ESTHospital Encounter [facility] Surgery [address] [place] [address] [place] [address] [place] [address] Gender dysphoria [F64.9]08/24/2025 9:15 AM EST - 08/24/2025 10:50 AM ESTSurgery [facility] Surgery [address] [place] [address] [place] [address] [place] [address] BILATERAL CTEKXLNVQDX67/05/2025 10:00 AM ESTOffice Visit Urology [address] [address] Zoila Tarango PA-C [address] [place] [address] Post op10/07/2025 9:30 AM [facility]Del[facility] [address] [address] [place] [address] [place] [address] Post op11/23/2025 1:40 PM ESTOffice Visit Internal Medicine [address] [phone] Burak Lackey PA-C [address] [place] [address] [facility] /u002/23/2026 9:00 AM EDTDisbanner boswell medical centerce [facility] Psychiatry [address] [place] [address] Tonny Luna, SUPERVISOR BRINE.COAL CAGER [address] [place], [place] [phone] Follow upNamePriorityAssociated DiagnosesDate/TimeORCHIECTOMY Gender dysphoria 08/24/2025 9:15 AM ESTdocumented as of this encounter Visit Diagnoses Not on filedocumented in this encounter Care Teams Team MemberRelationshipSpecialtyStart DateEnd Date Erika Espinoza, BOB [address] [place] [address] PCP - GeneralInternal Medicine01/23/24documented as of this encounter
--- OUTSIDE RECORDS SUMMARY | 2025-08-13 09:39 | XMS_ITS | Encounter Summary ---
Author Organization [facility] Address [address] [place] [address] Care Team Providers Care Manager Surgery Name Role Phone Erika Espinoza BOB Primary Care Provider + Source Comments In the event this information is protected by the Federal Confidentiality of Alcohol and Drug AbusePatient Records regulations: The Federal rules restrict any use of the information to criminally investigate or prosecute any alcohol or drug abuse patient.[facility] Encounter Details DateTypeDepartmentCare Team (Latest Contact Info)Zluojjawfkt80/23/2025Travel Social History Tobacco UseTypesPacks/DayYears UsedDateSmoking Tobacco: NeverPassive Smoke Exposure: NeverSmokeless Tobacco: NeverAlcohol UseStandard Drinks/WeekComments Not Currently0 (1 standard drink = 0.6 oz pure alcohol)[facility] UtilitiesAnswerDate RecordedIn the past 12 months has the [employer], gas, oil, or water [employer] threatened to shut off services in your home?No05/10/2025Social Connection and Isolation PanelAnswerDate RecordedIn a typical week, how many times do you talk on the phone with family, friends, or neighbors?Once a week05/10/2025How often do you get together with friends or relatives?Twice a week05/10/2025How often do you attend christian or adventism services?Never05/10/2025Do you belong to any clubs or organizations such as christian groups, unions, fraternal or athletic ramón ups, [...] and heating?Not hard at all 05/10/2025PHQ-2AnswerDate RecordedPHQ-2 jqdus011Finbrigham city community hospital [place] of Occupational Health - Occupational Stress QuestionnaireAnswerDate RecordedDo you feel stress - tense, restless, nervous, or anxious, or unable to sleep at night because yourmind is troubled all the time - these days?Only a zjcves0705/10/2025 Exercise Vital SignAnswerDate RecordedOn average, how many [...] RecordedNational Score (1-100), lower number is lower wapc181303/12/2024State Score (1-10), lower number is lower mmah51303/12/2024ata from: https://www.neighborhoodatlas.[facility].edu/. Last address used for veywpqvnyvk887 [facility]03/12/2024Sex and Gender InformationValueDate RecordedSex Assigned at WjpfwEuwp21/14/2024 9:46 PM EDTLegal SvuZrhs9410/24/2023 3:37 PM ESTGender IdentityTransgender Bajfkc2303/12/2024 1:27 PM EDTSexual OrientationNot on filedocumented as of this encounter Plan of Treatment DateTypeDepartmentCare Team (Latest Contact Info)Jsszxnrideu98/06/2025 10:40 AM [facility] Internal Medicine [place] [address] [place] [address] Burak Lackey PA-C [address] [place] [address] qiana f/u110/24/2024 9:15 AM ESTHospital Encounter [facility] Surgery [address] [place] [address] Tonny Daniels MD [address] [place] [address] Gender dysphoria [F64.9]08/24/2025 9:15 AM EST - 08/24/2025 10:50 AM ESTSurgery [facility] Surgery [address] [place] [address] Tonny Daniels MD [address] [place] [address] BILATERAL GLHZMSHEGNV70/05/2025 10:00 AM ESTOffice Visit Urology [address] [place] [address] Zoila Tarango PA-C [address]00 [place] [address] Post op10/07/2025 9:30 AM ESTDistanCanton-Potsdam Hospital Urology [address] [place] [address] Tonny Daniels MD [address]20 [place] [address] Post op11/23/2025 1:40 PM ESTOffice Visit Internal Medicine [place] [address] [place] [phone] Burak Lackey PA-C [address] [place] [address] gaht f/u002/23/2026 9:00 [facility]TBelle[facility] Psychiat[facility] [address] [place] [address] Tonny Luna APRN.MANAGER MEDIA [address] [place] [address] Follow upNamePriorityAssociated DiagnosesDate/TimeORCHIECTOMY Gender dysphoria 08/24/2025 9:15 AM ESTdocumented as of this encounter Visit Diagnoses Not on filedocumented in this encounter Care Teams Team MemberRelationshipSpecialtyStart DateEnd Date Erika Espinoza, MANAGER MEDIA [address] [place] [address] PCP - GeneralInternal Medicine01/23/24documented as of this encounter
--- OUTSIDE RECORDS SUMMARY | 2025-08-13 09:39 | XMS_ITS | Clinical Summary ---
Author Organization [facility] Address [address] [place] [address] Care Team Providers Care Lock And Dam Repairer Name Role Phone Erika Espinoza CNP Primary Care Provider + Allergies No known active allergies Medications * This document contains information received from the source organization and may not represent a complete record from that organization. MedicationSigDispense QuantityRefillsLast FilledStart DateEnd DateStatus progesterone micronized (PROMETRIUM) 100 mg capsule Indications:Gender dysphoria in adultTAKE 1 CAPSULE BY MOUTH EVERY DAY 90 capsule 07/25/2025tive estradiol (ESTRACE) 2 mg tablet Indications:Gender dysphoria in adultTake 1 tablet by mouth three times a day. 270 tablet /ctive spironolactone (ALDACTONE) 50 mg tablet Indications:Gender dysphoria in adultTake 1 tablet by mouth two times a day. 180 tablet ctive calcium carbonate (TUMS) 500 mg chew Take by mouth.Active progesterone micronized (PROMETRIUM) 100 mg capsule Indications:Gender dysphoria in adultTake 1 capsule by mouth once daily. 90 capsule Discontinued estradiol (ESTRACE) 2 mg tablet Indications:Gender dysphoria in adultTake 1 tablet by mouth three times a day. 270 tablet Discontinued spironolactone (ALDACTONE) 50 mg tablet Indications:Gender dysphoria in adultTake 1 tablet by mouth two times a day. 180 tablet Discontinued Active Problems ProblemNoted DateDiagnosed DateGERD (gastroesophageal reflux disease)08/12/2025 Assessment & Plan (08/12/2025 10:54 AM EST): Assessment: Takes Tums about twice a week for symptoms at night. Gender dysphoria in adult08/04/2025 Assessment & Plan (08/12/2025 10:58 AM EST): Assessment: b/l orchiectomy scheduled. Takes spironolactone, estrace and prometrium. Resolved Problems ProblemNoted DateDiagnosed DateResolved DateGender pszcbofei77 Encounters * This document contains information received from the source organization and may not represent a complete record from that organization. DateTypeDepartmentCare ZsweCwllrngacki30/05/2025 11:00 AM ESTPAT Pre Anesthesia [address] [place] [address] Pre-op evaluation (Primary Dx); Gender dysphoria in adult; Gastroesophageal reflux disease without znnkajlveas08/05/2025 Patient Msg Pre Anesthesia [address] [place] [address] Enedelia Green PA Pre-op /04/2025 2:45 PM ESTOffice Visit Urology [place] [address] [place] [phone] Tonny Daniels MD Gender dysphoria (Primary Dx); Preop axcaahxtdeh38/03/7816Pwugkt21/30/2025Results Follow-Up Internal Medicine [place] [address] [place] [phone] Guy Banuelos MD 08/04/2025 1:00 PM EDTDistance Health Psychiatry [address] [place] [address] Tonny Luna APRN.RELOCATION COORDINATOR Gender dysphoria in adult (Primary Dx)08/04/2025 Patient Msg Psychiatry [address] [place] [address] Tonny Luna APRN.RELOCATION COORDINATOR after visit muvcaid6707/30/2025 Get Medical Advice Urology [address] [phone] Tonny Daniels MD Pre-checkin in lvgojwbf43/23/4743Hwsfad59/22/2025Refill Internal Medicine [address] [phone] Guy Banuelos MD Refill Jaaphjv4007/25/2025[facility] [address] [phone] Guy Banuelos MD Refill Ijjxliz0906/11/2025Telephone Psychiatry [address] [place] [address] Tonny Luna APRN.RELOCATION COORDINATOR Pcwiwvbkblw67/19/2025Patient Update Urology [address] [place] [phone] Zoila Tarango PA-C Schedule Jvuaumd8605/25/2025 Get Medical Advice Urology [address] [phone] Tonny Daniels MD Uzhqhntkaa06/12/2025 2:00 PM EDTOffice Visit Urology [address] [address] Tonny Daniels MD Gender dysphoria (Primary Dx)05/18/20251738Anhzif53/06/2025 2:20 PM EDTOffice Visit Internal Medicine [address] [address] Guy Banuelos MD Gender dysphoria in adult (Primary Dx)from Last 3 Months Social History Tobacco UseTypesPacks/DayYears UsedDateSmoking Tobacco: NeverPassive Smoke Exposure: NeverSmokeless Tobacco: NeverAlcohol UseStandard Drinks/WeekComments Not Currently0 (1 standard drink = 0.6 oz pure alcohol)[facility] UtilitiesAnswerDate RecordedIn the past 12 months has the electric, gas, oil, or water [employer] threatened to shut off services in your home?No05/10/2025Social Connection and Isolation PanelAnswerDate RecordedIn a typical week, how many times do you talk on the phone with family, friends, or neighbors?Once a week05/10/2025How often do you get together with friends or relatives?Twice a week05/10/2025How often do you attend synagogue or hindu services?Never05/10/2025Do you belong to any clubs or organizations such as synagogue groups, unions, fraMowdo or athletic ramón ups, or school groups?Yes05/10/2025How [...] and heating?Not hard at all 05/10/2025PHQ-2AnswerDate RecordedPHQ-2 mjlkz216Finshriners hospitals for [facility] [place] of Occupational Health - Occupational Stress QuestionnaireAnswerDate RecordedDo you feel stress - tense, restless, nervous, or anxious, or unable to sleep at night because yourmind is troubled all the time - these days?Only a pzivjv9005/10/2025 Exercise Vital SignAnswerDate RecordedOn average, how many [...] RecordedNational Score (1-100), lower number is lower giyd421203/12/2024State Score (1-10), lower number is lower sfam84903/12/2024ata from: https://www.neighborhoodatlas.medicine.[facility].edu/. Last address used for wwfumatmzuo277 [facility]03/12/2024Sex and Gender InformationValueDate RecordedSex Assigned at LqaurHadv20/14/2024 9:46 PM EDTLegal LhlHhoq1410/24/2023 3:37 PM ESTGender IdentityTransgender Fpyfys8103/12/2024 1:27 PM EDTSexual OrientationNot on file Last Filed Vital Signs Vital SignReadingTime TakenCommentsBlood Zagvmvqj442/9411 2:45 PM EST Rhmvd4814/04/2025 2:45 PM ESTTemperature--Respiratory Ahph0409 2:15 PM EDTOxygen Saturation--Inhaled Oxygen Concentration--Etdsqe43.2 kg (214 lb 4.6 oz)08/12/2025 10:51 AM LSAVtvxpp263.9 cm (6')08/12/2025 10:51 AM ESTBody Mass Index29.0608/12/2025 10:51 AM EST Plan of Treatment DateTypeDepartmentCare Team (Latest Contact Info)Qnjhrnjhuhc70/06/2025 10:[address] [facility] Internal Medicine [address] [phone] Burak Lackey PA-C [address] [place] [address] ga f/u110/24/2024 9:15 AM ESTHospital Encounter [facility] Surgery [address] [place] [address] Tonny Daniels MD [address] [place] [address] Gender dysphoria [F64.9]08/24/2025 9:15 AM EST - 08/24/2025 10:50 AM ESTSurgery [facility] Surgery [address] [place] [address] Tonny Daniels MD [address] [place] [address] BILATERAL NHYTBCBUSIS48/05/2025 10:00 AM ESTOffice Visit Urology [address] [address] Zoila Tarango PA-C 9160 [place] [address] Post op10/07/2025 9:[address] [facility] Urology [address] [address] Tonny Daniels MD [address] [place] [address] Post op11/23/2025 1:40 PM ESTOffice Visit Internal Medicine [address] [phone] Burak Lackey PA-C [address] [place] [address] gaht f/u002/23/2026 9:00 AM EDTDistance [facility] Psychiat[facility] [address] [place] [address] Tonny Luna APRN.RELOCATION COORDINATOR [address] [place], [place] [phone] Follow upNamePriorityAssociated DiagnosesDate/TimeORCHIECTOMY Gender dysphoria 08/24/2025 9:15 AM ESTHealth MaintenanceDue DateLast DoneCommentsAnxiety Pndqkyxxc20/06/2004Depression Dvpsocuzs10/06/2004HIV Wfwjqhiim92/06/2004 Hepatitis C Ucuridqks22/06/2004DTaP,Tdap,Td Vaccine (1 - Tdap)2005 Hepatitis B Vaccine (1 of 3 - 19+ 3-dose series)2005HPV Vaccine (1 - 3- dose SCDM series)2013Lipid Qcaplscvd93/23/713481/Covid-19 Vaccine (3 - season)/05/2021, 06/24/2021Influenza Vaccine (#1) 2025 Procedures Procedure NamePriorityDate/TimeAssociated DiagnosisCommentsCOMPLETE BLOOD COUNT Rstsofc3508/06/2025 9:52 AM EDT Gender dysphoria Preop testing ESTRADIOL-17B TCCWleyoww08/30/2025 9:52 AM EDT Gender dysphoria in adult TESTOSTERONE, TOTAL BY IMMUNOASSAY (ADULT MALES, OR INDIVIDUALS ON TESTOSTERONE THERAPY)Nygzlqj0208/06/2025 9:52 AM EDT Gender dysphoria in adult COMPREHENSIVE METABOLIC PIAGFPtnywyt01/30/2025 9:52 AM EDT Gender dysphoria in adult from Last 3 Months Results * TESTOSTERONE, TOTAL BY IMMUNOASSAY (ADULT MALES, OR INDIVIDUALS ON TESTOSTERONE THERAPY) (08/06/2025 9:52 AM EDT)ComponentValueRef RangeTest MethodAnalysis TimePerformed AtPathologist RcfdvgcgjZpmktqdtwyll66vq/dL 08/06/2025 7:45 PM EDTCGER[facility]IN LABSpecimen (Source)Anatomical Location / LateralityCollection Method / VolumeCollection TimeReceived Time BloodBLOOD SPECIMEN / UnknownVenipuncture / Kgshskt0908/06/2025 9:52 AM EDT 08/06/2025 9:52 AM EDT Narrative Authorizing ProviderResult TypeResult StatusGuy Banuelos MDLABORATORYFinal ResultPerforming OrganizationAddressCity/State/ZIP CodePhone Number [facility] [address] [place] [address], * ESTRADIOL-17B BLD (08/06/2025 9:52 AM EDT)ComponentValueRef RangeTest Method Analysis TimePerformed AtPathologist SignatureEstradiol 57G350ia/mL08/06/2025 7:45 PM EDTCGERMAN [facility]IN LABSpecimen (Source)Anatomical Location / LateralityCollection Method / VolumeCollection TimeReceived TimeBloodBLOOD SPECIMEN / UnknownVenipuncture / Dmrstia4508/06/2025 9:52 AM EDT1 9:52 AM EDT Narrative Authorizing ProviderResult TypeResult StatusGuy Banuelos MDLABORATORYFinal ResultPerforming OrganizationAddressCity/State/ZIP CodePhone Number [facility] [address] [place] [address], * (ABNORMAL) COMPREHENSIVE METABOLIC PANEL (08/06/2025 9:52 AM EDT)Component ValueRef RangeTest MethodAnalysis TimePerformed AtPathologist Signature Protein, Total7.26.3 - 8.0 g/dL08/06/2025 10:25 AM EDTNORTHCOAST [facility] LABAlbumin4.33.9 - 4.9 g/dL08/06/2025 10:25 AM EDTNORTHCOAST MCL[facility] LABCalcium, Total9.88.5 - 10.2 mg/dL08/06/2025 10:25 AM EDTNORTHCST MCL[facility]EN B[facility] LABBilirubin, Total0.50.2 - 1.3 mg/dL 08/06/2025 10:25 AM EDMINN[facility] LABAlkaline Hbqnvqifxmt2045 - 113 U/L1 10:25 AM EDMINN[facility] NTYACK06(L)14 - 40 U/L1 10:25 AM EDTWILLIAM[facility] LABALT8(L)10 - 54 U/L1 10:25 AM MAN [facility] VEMBpgbory061(H)74 - 99 mg/dL08/06/2025 10:25 AM EDMINNIE [facility] LABComment: The [place] Diabetes Association (ADA) provides guidance for cutoff values for fasting glucose andrandom glucose. The ADA defines fasting as no caloric intake for at least 8 hours. Fasting plasma glucose results between 100 to 125 mg/dL indicate increased risk for diabetes (prediabetes). Fasting plasma glucose results greater than or equal to 126 mg/dL meet the criteria for diagnosis of diabetes. In the absence of unequivocal hyperglycemia, results should be confirmed by repeat testing. In a patient with classic symptoms of hyperglycemia or hyperglycemic crisis, random plasma glucose results greater than or equal to 200 mg/dL meet the criteria for diagnosis of diabetes. Reference: Standards of Medical Care in Diabetes 2016, [place] Diabetes Association. Diabetes Care. 2016.39(Suppl 1). BUN99 - 24 mg/dL08/06/2025 10:25 AM MAN [facility] LAB Creatinine0.740.73 - 1.22 mg/dL08/06/2025 10:25 AM EDTNOGRE[facility] JDLYbymtr148559 - 144 mmol/L1 10:25 AM MAN [facility] LABPotassium3.93.7 - 5.1 mmol/L1 10:25 AM EDMINN[facility] OYTDqwllder56648 - 107 mmol/L1 10:25 AM EDT [facility] GQVWR23637 - 30 mmol/L1 10:25 AM EDT [facility] LABAnion Pre055 - 15 mmol/L1 10:25 AM EDTWILLIAMSON [facility] LABEstimated Glomerular Filtration Tzxt467 >=60 mL/min/1.73m 08/06/2025 10:25 AM MAN [facility] LABComment:Estimated Glomerular Filtration Rate (eGFR) is calculated using the 2020 CKD-EPI creatinine equation. This equation utilizes serum creatinine, sex, and age as parameters. The creatinine assay has traceable calibration to isotope dilution- mass spectrometry. Refer to KDIGO guidelines for clinical interpretation. In patients with unstable renal function, e.g. those with acute kidney injury, the eGFRmay not accurately reflect actual GFR.Specimen (Source)Anatomical Location / LateralityCollection Method / VolumeCollection TimeReceived TimeBloodBLOOD SPECIMEN / UnknownVenipuncture / Cmvjpuh0908/06/2025 9:52 AM EDT1 9:52 AM EDT Narrative Authorizing ProviderResult TypeResult StatusEung Noel Banuelos MDLABORATORYFinal ResultPerforming OrganizationAddressCity/State/ZIP CodePhone Number [facility] [address] [place] [address] * (ABNORMAL) COMPLETE BLOOD COUNT (08/06/2025 9:52 AM EDT)ComponentValueRef RangeTest MethodAnalysis TimePerformed AtPathologist SignatureWBC6.433.70 - 11.00 k/uL08/06/2025 10:05 AM EDTNOGREENBRIER VALLEY [facility] LABRBC4.44 4.20 - 6.00 m/uL08/06/2025 10:05 AM EDMINNIE [facility] LAB Ftgfwgcuof07.513.0 - 17.0 g/dL08/06/2025 10:05 AM MAN [facility] OUFOaedxdgeai98.7(L)39.0 - 51.0 %08/06/2025 10:05 AM EDT [facility] QUTRLD47.280.0 - 100.0 fL08/06/2025 10:05 AM EDMINNIE [facility] EBHFGF53.426.0 - 34.0 pg08/06/2025 10:05 AM MAN [facility] PFCYTUN85.930.5 - 36.0 g/dL08/06/2025 10:05 AM MAN [facility] LABRDW-CV12.111.5 - 15.0 % 08/06/2025 10:05 AM MAN [facility] LABPlatelet Fsfpc120 150 - 400 k/uL08/06/2025 10:05 AM MAN [facility] LABMPV 10.59.0 - 12.7 fL08/06/2025 10:05 AM MAN [facility] LAB Absolute nRBC<0.01<0.01 k/uL08/06/2025 10:05 AM MAN [facility] LABSpecimen (Source)Anatomical Location / LateralityCollection Method / VolumeCollection TimeReceived TimeBloodBLOOD SPECIMEN / UnknownVenipuncture / Asuazdi1108/06/2025 9:52 AM EDT1 9:52 AM EDT Narrative Authorizing ProviderResult TypeResult StatusBethkevin BHAGAT-CLABORATORYFinal ResultPerforming OrganizationAddressCity/State/ZIP CodePhone Number [facility] [address] [place] [address] from Last 3 Months Insurance Care Teams Team MemberRelationshipSpecialtyStart DateEnd Date Erika Espinoza, [address] [place] [address] PCP - GeneralInternal Medicine01/23/24
--- OUTSIDE RECORDS SUMMARY | 2025-08-13 09:39 | XMS_ITS | Encounter Summary ---
Author Organization [facility] Address [address] [place] [address] Care Team Providers Care Trust Vault Clerk Name Role Phone Erika Espinoza RAILROAD TRACK REPAIR SUPERVISOR Primary Care Provider + Source Comments In the event this information is protected by the Federal Confidentiality of Alcohol and Drug AbusePatient Records regulations: The Federal rules restrict any use of the information to criminally investigate or prosecute any alcohol or drug abuse patient.[facility] Encounter Details DateTypeDepartmentCare Team (Latest Contact Info)Lqonyiqbygy83/23/2025 Get Medical Advice Urology [place] [address] [place] [address] Tonny Daniels MD [address] [place] [address] Pre-checkin in question Social History Tobacco UseTypesPacks/DayYears UsedDateSmoking Tobacco: NeverPassive Smoke Exposure: NeverSmokeless Tobacco: NeverAlcohol UseStandard Drinks/WeekComments Not Currently0 (1 standard drink = 0.6 oz pure alcohol)[facility] UtilitiesAnswerDate RecordedIn the past 12 months has the electric, gas, oil, or water company threatened to shut off services in your home?No05/10/2025Social Connection and Isolation PanelAnswerDate RecordedIn a typical week, how many times do you talk on the phone with family, friends, or neighbors?Once a week05/10/2025How often do you get together with friends or relatives?Twice a week05/10/2025How often do you attend yazdanism or christianity services?Never05/10/2025Do you belong to any clubs or organizations such as yazdanism groups, unions, fraternal or athletic ramón ups, [...] and heating?Not hard at all 05/10/2025PHQ-2AnswerDate RecordedPHQ-2 nmlja261Fin[facility] [place] of Occupational Health - Occupational Stress QuestionnaireAnswerDate RecordedDo you feel stress - tense, restless, nervous, or anxious, or unable to sleep at night because yourmind is troubled all the time - these days?Only a sqehmb7305/10/2025 Exercise Vital SignAnswerDate RecordedOn average, how many [...] RecordedNational Score (1-100), lower number is lower ticw769903/12/2024State Score (1-10), lower number is lower ckwf4884Data from: https://www.neighborhoodatlas.medicine.[facility].edu/. Last address used for uygcetgpxjq672 [facility]03/12/2024Sex and Gender InformationValueDate RecordedSex Assigned at MnjjlCjxa90/14/2024 9:46 PM EDTLegal CzsSnxd6110/24/2023 3:37 PM ESTGender IdentityTransgender Uqqanm5103/12/2024 1:27 PM EDTSexual OrientationNot on filedocumented as of this encounter Plan of Treatment DateTypeDepartmentCare Team (Latest Contact Info)Amxkuygrxhu27/06/2025 10:40 AM [facility] Internal Medicine [place] [address] [place] [address] Burak Lackey PA-C [address] [place] [address] [facility] f/u110/24/2024 9:15 AM ESTHospital Encounter [facility] Surgery [address] [place] [address] [place] [address] [place] [address] Gender dysphoria [F64.9]08/24/2025 9:15 AM EST - 08/24/2025 10:50 AM ESTSurgery [facility] Surgery [address] [place] [address] [place] [address] [place] [address] BILATERAL XUVUJZTYGZH14/05/2025 10:00 AM ESTOffice Visit Urology [address] [address] Zoila Tarango PA-C [address] [place] [address] Post op10/07/2025 9:30 AM ESTDistance Health Urology [address] [address] Tonny Daniels MD [address] [place], [place] [phone] Post op11/23/2025 1:40 PM ESTOffice Visit Internal Medicine [address] [phone] Burak Lackey PA-C [address] [place] [address] [facility] /u002/23/2026 9:00 AM EDTDistance Health Psychiatry [address] [place] [address] Tonny Luna, PROMOTIONS ASSOCIATE.RAILROAD TRACK REPAIR SUPERVISOR [address] [place], [place] [phone] Follow upNamePriorityAssociated DiagnosesDate/TimeORCHIECTOMY Gender dysphoria 08/24/2025 9:15 AM ESTdocumented as of this encounter Visit Diagnoses Not on filedocumented in this encounter Care Teams Team MemberRelationshipSpecialtyStart DateEnd Date Erika Espinoza CNP [address] [place] [address] PCP - GeneralInternal Medicine01/23/24documented as of this encounter
--- OUTSIDE RECORDS SUMMARY | 2025-08-13 09:39 | XMS_ITS | Encounter Summary ---
Author Organization [facility] Address [address] [place] [address] Care Team Providers Care Rubber Mill Tender Name Role Phone Erika Espinoza Boris [facility] Primary Care Provider + Source Comments In the event this information is protected by the Federal Confidentiality of Alcohol and Drug AbusePatient Records regulations: The Federal rules restrict any use of the information to criminally investigate or prosecute any alcohol or drug abuse patient.[facility] Encounter Details DateTypeDepartmentCare Team (Latest Contact Info)Ototolfuyzg08/28/2025 Patient Msg Psychiatry [address] [place] [address] Tonny Luna APRN.ENTOMOLOGY PROFESSOR [address] [place] [address] after visit summary Social History Tobacco UseTypesPacks/DayYears UsedDateSmoking Tobacco: NeverPassive Smoke Exposure: NeverSmokeless Tobacco: NeverAlcohol UseStandard Drinks/WeekComments Not Currently0 (1 standard drink = 0.6 oz pure alcohol)[facility] UtilitiesAnswerDate RecordedIn the past 12 months has the electric, gas, oil, or water company threatened to shut off services in your home?No05/10/2025Social Connection and Isolation PanelAnswerDate RecordedIn a typical week, how many times do you talk on the phone with family, friends, or neighbors?Once a week05/10/2025How often do you get together with friends or relatives?Twice a week05/10/2025How often do you attend zoroastrianism or anabaptism services?Never05/10/2025Do you belong to any clubs or organizations such as zoroastrianism groups, unions, fraternal or athletic ramón ups, [...] and heating?Not hard at all 05/10/2025PHQ-2AnswerDate RecordedPHQ-2 pzyqk555Finspanish fork hospital [place] of Occupational Health - Occupational Stress QuestionnaireAnswerDate RecordedDo you feel stress - tense, restless, nervous, or anxious, or unable to sleep at night because yourmind is troubled all the time - these days?Only a jjhqks6605/10/2025 Exercise Vital SignAnswerDate RecordedOn average, how many [...] RecordedNational Score (1-100), lower number is lower nmhy783803/12/2024State Score (1-10), lower number is lower eoqp0994Data from: https://www.neighborhoodatlas.medicine.[facility].edu/. Last address used for ovminpqaxbf712 [facility]03/12/2024Sex and Gender InformationValueDate RecordedSex Assigned at HxmchElbi42/14/2024 9:46 PM EDTLegal RpnTdty9110/24/2023 3:37 PM ESTGender IdentityTransgender Meqpkg8103/12/2024 1:27 PM EDTSexual OrientationNot on filedocumented as of this encounter Plan of Treatment DateTypeDepartmentCare Team (Latest Contact Info)Xubyzeswylf20/06/2025 10:40 AM [facility] Internal Medicine [place] [address] [place] [address] Burak Lackey PA-C [address] [place] [address] qiana vizcaino/u110/24/2024 9:15 AM ESTHospital Encounter [facility] Surgery [address] [place] [address] Tonny Daniels MD [address] [place] [address] Gender dysphoria [F64.9]08/24/2025 9:15 AM EST - 08/24/2025 10:50 AM ESTSurgery [facility] Surgery [address] [place] [address] Tonny Daniels MD [address] [place] [address] BILATERAL QICAYXWCPHO21/05/2025 10:00 AM ESTOffice Visit Urology [address] [address] Zoila Tarango PA-C [address] [place] [address] Post op10/07/2025 9:30 AM ESTDistance Health Urology [address] [address] Tonny Daniels MD [address] [place] [address] Post op11/23/2025 1:40 PM ESTOffice Visit Internal Medicine [address] [phone] Burak Lackey PA-C [address] [place] [address] gamarleni f/u002/23/2026 9:00 AM EDTDistance Health Psychiatry [address] [place] [address] Tonny Luna, TEACHER HOME THERAPY.ENTOMOLOGY PROFESSOR [address] [place], [place] [phone] Follow upNamePriorityAssociated DiagnosesDate/TimeORCHIECTOMY Gender dysphoria 08/24/2025 9:15 AM ESTdocumented as of this encounter Visit Diagnoses Not on filedocumented in this encounter Care Teams Team MemberRelationshipSpecialtyStart DateEnd Date Erika Espinoza, BOB [address] [place] [address] PCP - GeneralInternal Medicine01/23/24documented as of this encounter
--- OUTSIDE RECORDS SUMMARY | 2025-08-13 09:39 | XMS_ITS | Encounter Summary ---
Author Organization [facility] Address [facility] [place] [address] Care Team Providers Care Perl Programmer Name Role Phone Erika Espinoza PARACHUTE RIGGER Primary Care Provider + Source Comments In the event this information is protected by the Federal Confidentiality of Alcohol and Drug AbusePatient Records regulations: The Federal rules restrict any use of the information to criminally investigate or prosecute any alcohol or drug abuse patient.[facility] Encounter Details DateTypeDepartmentCare Team (Latest Contact Info)Koxkwjjsrcw55/05/2025 Patient Msg Pre Anesthesia [address] [place] [address] Enedelia Green PA [address] [place] [address] Pre-op instructions Social History Tobacco UseTypesPacks/DayYears UsedDateSmoking Tobacco: NeverPassive Smoke Exposure: NeverSmokeless Tobacco: NeverAlcohol UseStandard Drinks/WeekComments Not Currently0 (1 standard drink = 0.6 oz pure alcohol)[facility] UtilitiesAnswerDate RecordedIn the past 12 months has the electric, gas, oil, or water company threatened to shut off services in your home?No05/10/2025Social Connection and Isolation PanelAnswerDate RecordedIn a typical week, how many times do you talk on the phone with family, friends, or neighbors?Once a week05/10/2025How often do you get together with friends or relatives?Twice a week05/10/2025How often do you attend methodist or congregational services?Never05/10/2025Do you belong to any clubs or organizations such as methodist groups, unions, fraternal or athletic ramón ups, [...] and heating?Not hard at all 05/10/2025PHQ-2AnswerDate RecordedPHQ-2 [id number] health [place] of Occupational Health - Occupational Stress QuestionnaireAnswerDate RecordedDo you feel stress - tense, restless, nervous, or anxious, or unable to sleep at night because yourmind is troubled all the time - these days?Only a fexvhr8305/10/2025 Exercise Vital SignAnswerDate RecordedOn average, how many [...] RecordedNational Score (1-100), lower number is lower sagr605603/12/2024State Score (1-10), lower number is lower rrst27603/12/2024ata from: https://www.neighborhoodatlas.medicine.[facility].edu/. Last address used for [id number] [facility]03/12/2024Sex and Gender InformationValueDate RecordedSex Assigned at VilblNxyb37/14/2024 9:46 PM EDTLegal BdyGsqs4510/24/2023 3:37 PM ESTGender IdentityTransgender Upfkqh8603/12/2024 1:27 PM EDTSexual OrientationNot on filedocumented as of this encounter Plan of Treatment DateTypeDepartmentCare Team (Latest Contact Info)Gikxcjkygng43/06/2025 10:40 AM [facility] Internal Medicine [place] [address] [place] [address] Burak Lackey PA-C [address] [place] [address] qiana vizcaino/u110/24/2024 9:15 AM ESTHospital Encounter [facility] [address] [place] [address] Tonny Daniels MD [address] [place] [address] Gender dysphoria [F64.9]08/24/2025 9:15 AM EST - 08/24/2025 10:50 AM ESTSurgery [facility] [address] [place] [address] Tonny Daniels MD [address] [place] [address] BILATERAL CAWBRBJJWQJ88/05/2025 10:00 AM ESTOffice Visit Urology [address] [address] Zoila Tarango PA-C [address] [place] [address] Post op10/07/2025 9:30 AM ESTDistance Health [facility] [address] [address] Tonny Daniels MD [address] [place] [address] Post op11/23/2025 1:40 PM ESTOffice Visit Internal Medicine [address] [phone] Burak Lackey PA-C [address] [place] [address] gamarleni f/u002/23/2026 [address] [facility] Psychiatry [address] [place] [address] Tonny Luna, COMMUNITY ADMINISTRATOR.PARACHUTE RIGGER [address] [place], [place] [id number] Follow upNamePriorityAssociated DiagnosesDate/TimeORCHIECTOMY Gender dysphoria 08/24/2025 9:15 AM ESTdocumented as of this encounter Visit Diagnoses Not on filedocumented in this encounter Care Teams Team MemberRelationshipSpecialtyStart DateEnd Date Erika Espinoza CNP [address] [place] [address] PCP - GeneralInternal Medicine01/23/24documented as of this encounter
[2025-08-13 10:37] LABS: Cholesterol 173 mg/dL (<=200); HDL Cholesterol 42 mg/dL (40-60); Triglycerides 234 mg/dL (<=150); VLDL CHOLESTEROL 46.8 mg/dL
== END 2025-08-13 09:36 | disposition home or self-care (01) ==
LOC: LAB 09:35
PROVIDERS: PCP Nurse Practitioner Family; Visit Provider Nurse Practitioner Family
DX: Z00.00 Encounter for general adult medical examination without abnormal findings (principal)
CPT/HCPCS: 36415; 80061; 83036